=== PATIENT | male | born 1940 | race Caucasian/White ===

== ENCOUNTER 2017-08-18 13:28 | Emergency (ER) | payer OTHER ==
[2017-08-18 15:14] LABS: APPEARANCE CLEAR (CLEAR); BILIRUBIN NEGATIVE (NEGATIVE); COLOR YELLOW (YELLOW); GLUCOSE NEGATIVE (NEGATIVE); KETONE NEGATIVE (NEGATIVE); NITRITE NEGATIVE (NEGATIVE); PROTEIN NEGATIVE (NEGATIVE); SPECIFIC GRAVITY 1.015 (1.005-1.020); UROBILINOGEN NORMAL (NORMAL)
[2017-08-18 15:19] LABS: BASOPHILS 0.4 % (0-2); EOSINOPHILS 0.5 % (0-7); HEMATOCRIT 41.2 % (42.0-54.0); HEMOGLOBIN 13.8 g/dL (13.5-17.5); IMMATURE GRANULOCYTES 0.2 % (0-5); LYMPHOCYTES 21.7 % (15-50); MCH 29.2 pg (26.0-34.0); MCHC 33.5 g/dL (31.0-37.0); MCV 87.1 fL (80.0-100.0); MEAN PLATELET VOLUME 9.7 fL (7.4-10.4); MONOCYTES 11.3 % (2-11); NEUTROPHILS 65.9 % (40-80); PLATELET COUNT 326 10x3/uL (130-400); RBC 4.73 10x6/uL (4.20-6.10); RDW 15.2 % (11.5-14.5); WBC 8.6 10x3/uL (4.8-10.8)
[2017-08-18 15:42] LABS: ALBUMIN 3.3 g/dL (3.4-5.0); ALKALINE PHOSPHATASE 96 U/L (46-116); ALT (SGPT) 16 U/L (10-68); BILIRUBIN - TOTAL 0.15 mg/dL (0.2-1.3); CALC OSMOLALITY 275 mosm/kg (275-300); CALCIUM 8.7 mg/dL (8.5-10.1); CARBON DIOXIDE 24.2 mmol/L (21.0-32.0); CHLORIDE - SERUM 105 mmol/L (98-107); GLUCOSE 92 mg/dL (74-106); POTASSIUM - SERUM 4.2 mmol/L (3.5-5.1); SODIUM 138 mmol/L (136-145); UREA NITROGEN 13 mg/dL (7-18); eGFR NON AFRICAN AMERICAN 77 mL/min (90-120)
[2017-08-18 16:13] LABS: MAGNESIUM - SERUM 2.3 mg/dL (1.8-2.4)
== END 2017-08-18 16:45 | disposition home or self-care (01) ==
LOC: D.ER 13:28
PROVIDERS: Emergency Medicine
DX: R41.82 Altered mental status, unspecified (principal); I10 Essential (primary) hypertension

== ENCOUNTER 2017-10-23 11:22 | Emergency (ER) | payer OTHER | END 2017-10-23 17:24 | disposition other institution (70) | LOC: D.ER 11:22 | DX: K85.90 Acute pancreatitis without necrosis or infection, unspecified (principal); I10 Essential (primary) hypertension ==